=== PATIENT | male | born 1975 | race Caucasian/White ===

== ENCOUNTER → 2017-05-30 | Day surgery (SDC) | payer OTHER ==
--- NOTE | 2017-05-30 16:39 | RADIOLOGY REPORT (SQ) ---
EXAM DESCRIPTION: ARTHRO HIP INJ W/ANESTHESIA COMPLETE DATE/TIME: 05/30/2017 2:39 pm REASON FOR STUDY: JOINT DERANGEMENT (M24.9), PAIN IN UNSPEC HIP (M25.559) M24.9 JOINT DERANGEMENT, UNSPECIFIED M25.559 PAIN IN UNSPECIFIED HIP FINDINGS: Please see combined report for performance of procedure and radiologic supervision and int erpretation. IMPRESSION: Please see combined report for performance of procedure and radiologic supervision and i nterpretation.
--- NOTE | 2017-05-30 16:42 | RADIOLOGY REPORT (SQ) ---
EXAM DESCRIPTION: FLUORO/NEEDLE PLACEMENT COMPLETED DATE/TIME: 05/30/2017 2:39 pm REASON FOR STUDY: JOINT DERANGEMENT (M24.9), PAIN IN UNSPEC HIP (M25.559) M24.9 JOINT DERANGEMENT, UNSPECIFIED M25.559 PAIN IN UNSPECIFIED HIP COMPARISON: None. FLUOROSCOPY TIME: 9 seconds 1 images saved to PACS. LIMITATIONS: None. PROCEDURE: Procedure, risks, benefits and alternatives explained to patient who then gave written c onsent. The left hip was marked and a time-out was called for correct marking verification. Entry s ite marked using fluoroscopic guidance. Hip prepped and draped using sterile technique. Local anes thesia achieved using 1% lidocaine injection. Hypodermic needle introduced into the joint space und er direct fluoroscopic visualization. Non-ionic contrast instilled to confirm intra-articular positi on. Dilute gadolinium solution then injected. Needle removed and entry site covered with sterile b andage. No immediate complications noted. TECHNIQUE: Digital images acquired during fluoroscopy and stored on PACS. Patient immediately take n to the MR suite for additional imaging. INJECTION LOCATION: Anterior CONTRAST TYPE AND AMOUNT: 10 mL ProHance solution IMPRESSION: SUCCESSFUL NEEDLE PLACEMENT AND INJECTION FOR left HIP MR ARTHROGRAM. COMMENT: Quality ID 145: Final reports for procedures using fluoroscopy that document radiation exp osure indices, or exposure time and number of fluorographic images (if radiation exposure indices are not available) TECHNICAL DOCUMENTATION: JOB ID: [id number] [employer]- All Rights Reserved
--- NOTE | 2017-05-31 02:07 | RADIOLOGY REPORT (SQ) ---
EXAM DESCRIPTION: MRI LT LOWER JOINT WITH COMPLETED DATE/TIME: 05/30/2017 3:21 pm REASON FOR STUDY: JOINT DERANGEMENT (M24.9), PAIN IN UNSPEC HIP (M25.559) M24.9 JOINT DERANGEMENT, UNSPECIFIED M25.559 PAIN IN UNSPECIFIED HIP COMPARISON: Plain radiographs at the time of the arthrogram. TECHNIQUE: Post arthrogram imaging is performed using T1 and T1 and T2 fat saturated sequences of th e pelvis and specific hip of interest. LIMITATIONS: None. FINDINGS: JOINT DISTENSION: Adequate. No loose body. BONE MARROW: No edema. No marrow replacement. FEMORAL HEAD, NECK, AND ACETABULUM: No occult fracture. No osteophytes or subchondral cysts. Normal s phericity of femoral head/neck junction. No acetabular dysplasia. No evidence of femoroacetabular imp ingement. PUBIC RAMI AND ISCHIUM: No occult fracture. SACRUM AND QIAN: SI joints normal in signal. No occult fracture. EFFUSIONS: None. LABRUM AND CARTILAGE: There is a very tiny cleft in the labrum. The cartilage is intact. No delamin ation. MUSCLES AND SOFT TISSUES: Adductors and piriformis normal. Abductors and greater trochanteric bursa n ormal without edema or fluid. Iliopsoas bursa without fluid. Hamstring attachments without edema or t ear. PELVIC SOFT TISSUES: No masses or adenopathy. SCIATIC NERVE: Identified without masses. OTHER: No other significant finding. IMPRESSION: Very tiny cleft in the lateral labrum without delamination or complete labral tear. TECHNICAL DOCUMENTATION: JOB ID: [id number] [employer]- All Rights Reserved
== END ==
LOC: RAD 13:15
PROVIDERS: ATTEND Physician Assistant
PROC: BQ01ZZZ Plain Radiography of Left Hip (ICD-10-PCS; principal; 2017-05-30)
DX: M24.9 Joint derangement, unspecified (principal); M25.559 Pain in unspecified hip
CPT/HCPCS: 73722; 77002; 27095; A9576

== ENCOUNTER → 2017-06-03 | Day surgery (SDC) | payer OTHER ==
--- NOTE | 2017-06-03 16:12 | RADIOLOGY REPORT (SQ) ---
EXAM DESCRIPTION: ARTHRO HIP INJ W/ANESTHESIA; FLUORO/NEEDLE PLACEMENT COMPLETED DATE/TIME: 06/03/2017 2:57 pm REASON FOR STUDY: JOINT DERANGEMENT, UNSPECIFIED M25.559 PAIN IN UNSPECIFIED HIP M24.9 JOINT DERAN GEMENT, UNSPECIFIED COMPARISON: None. FLUOROSCOPY TIME: 32 seconds. 1 images saved to PACS. LIMITATIONS: None. PROCEDURE: Procedure, risks, benefits and alternatives explained to patient who then gave written c onsent. The right hip was marked and a time-out was called for correct marking verification. Entry site marked using fluoroscopic guidance. Hip prepped and draped using sterile technique. Local ane sthesia achieved using 1% lidocaine injection. Hypodermic needle introduced into the joint space un jocelin direct fluoroscopic visualization. Non-ionic contrast instilled to confirm intra-articular posit ion. Dilute gadolinium solution then injected. Needle removed and entry site covered with sterile bandage. No immediate complications noted. TECHNIQUE: Digital images acquired during fluoroscopy and stored on PACS. Patient immediately take n to the MR suite for additional imaging. INJECTION LOCATION: Right hip. CONTRAST TYPE AND AMOUNT: 1 mL Isovue and 10 mL ProHance saline mixture. IMPRESSION: SUCCESSFUL NEEDLE PLACEMENT AND INJECTION FOR RIGHT HIP MR ARTHROGRAM. COMMENT: Quality ID 145: Final reports for procedures using fluoroscopy that document radiation exp osure indices, or exposure time and number of fluorographic images (if radiation exposure indices are not available) TECHNICAL DOCUMENTATION: JOB ID: [id number] [employer]- All Rights Reserved
--- NOTE | 2017-06-03 17:13 | RADIOLOGY REPORT (SQ) ---
EXAM DESCRIPTION: MRI RT LOWER JOINT WITH COMPLETED DATE/TIME: 06/03/2017 3:50 pm REASON FOR STUDY: JOINT DERANGEMENT, UNSPECIFIED M25.559 PAIN IN UNSPECIFIED HIP M24.9 JOINT DERAN GEMENT, UNSPECIFIED COMPARISON: None. TECHNIQUE: Post arthrogram imaging is performed using T1 and T1 and T2 fat saturated sequences of th e pelvis and specific hip of interest. LIMITATIONS: Motion. Artifact associated with body habitus. FINDINGS: JOINT DISTENSION: Adequate. No loose body. BONE MARROW: No edema. No marrow replacement. FEMORAL HEAD, NECK, AND ACETABULUM: No evidence of avascular necrosis or femoro acetabular impingemen t. PUBIC RAMI AND ISCHIUM: No occult fracture. SACRUM AND QIAN: SI joints normal in signal. No occult fracture. EFFUSIONS: None. LABRUM AND CARTILAGE: No definite labral tear. There is thinning of the cartilage. MUSCLES AND SOFT TISSUES: Adductors and piriformis normal. Mild signal alteration insertion of the g luteal tendon on the greater trochanter. No organized bursal fluid collection. Iliopsoas bursa with out fluid. Hamstring attachments without edema or tear. PELVIC SOFT TISSUES: No masses or adenopathy. SCIATIC NERVE: Identified without masses. OTHER: No other significant finding. IMPRESSION: 1. No labral tear identified. 2. Thinning of articular cartilage. 3. Mild tendinopathy insertion of the gluteus tendon on the right greater trochanter. No organized b ursal fluid collection. TECHNICAL DOCUMENTATION: JOB ID: [id number] [employer]- All Rights Reserved
== END ==
LOC: RAD 13:31
PROVIDERS: ATTEND Physician Assistant
PROC: BQ00ZZZ Plain Radiography of Right Hip (ICD-10-PCS; principal; 2017-06-03)
DX: M25.551 Pain in right hip (principal); M24.9 Joint derangement, unspecified
CPT/HCPCS: 73722; 77002; 27095; A9576